=== PATIENT | male | born 1995 | race Caucasian/White ===

== ENCOUNTER 2023-08-20 20:48 | Emergency (ER) | payer MEDICAID ==
[~2023-08-20] VITALS: Ht 170.2 cm; Wt 78.0 kg
[2023-08-20 21:14] VITALS: O2SAT 100
[2023-08-20] MEDS: ONDANSETRON HCL 4MG TABLET PO ONE (22:40)
[2023-08-20 22:56] LABS: BASOPHILS % 0.9 % (0.0-2.0); EOSINOPHILS % 0.3 % (0.0-5.0); HEMATOCRIT. 42.2 % (42.0-52.0); HEMOGLOBIN. 14.3 g/dL (14.0-18.0); LYMPHOCYTES % 16.1 % (20.0-50.0); MEAN CORPUSCULAR HEMOGLOBIN 27.8 pg (28.0-32.0); MEAN CORPUSCULAR VOLUME 81.6 fL (80.0-94.0); MEAN PLATELET VOLUME 8.2 fl (7.4-10.4); MONOCYTES % 6.4 % (2.0-8.0); NEUTROPHILS % 76.3 % (40.0-76.0); PLATELET 306 x1000/uL (130-400); RED BLOOD CELL COUNT 5.17 mill/uL (4.7-6.1); RED CELL DISTRIBUTION WIDTH 13.6 % (11.6-14.6); WHITE BLOOD COUNT 6.8 x1000/uL (4.5-11.0)
[2023-08-20 23:02] LABS: CHLORIDE 102 mEq/L (98-107); POTASSIUM 4.3 mEq/L (3.5-5.1); SODIUM 135 mEq/L (136-145)
[2023-08-20 23:03] LABS: CALCIUM 8.8 mg/dL (8.7-10.4); CARBON DIOXIDE 25 mEq/L (21-32)
[2023-08-20 23:08] LABS: CREATININE 0.8 mg/dL (0.6-1.3); GLUCOSE 97 mg/dL (70-105); UREA NITROGEN BLOOD 7 mg/dL (9-23)
[2023-08-20 23:10] LABS: ALANINE AMINOTRANSFERASE 42 IU/L (10-49); ALBUMIN 4.9 g/dL (3.2-4.8); ASPARTATE AMINOTRANSFERASE 31 IU/L (<34); BILIRUBIN TOTAL 0.6 mg/dL (0.1-1.0); CREATINE KINASE 199 IU/L (46-171); PROTEIN TOTAL 7.9 g/dL (6.0-8.3)
[2023-08-20 23:55] VITALS: BP 114/71; PULSE 71; RESP 16; TEMP 98.7
== END 2023-08-21 00:05 | disposition home or self-care (01) ==
LOC: ER 20:48
DX: R20.2 Paresthesia of skin (principal); E78.00 Pure hypercholesterolemia, unspecified
CPT/HCPCS: 99283; 80053; 82550; 85025; 36415; Q0162

== ENCOUNTER 2024-05-29 07:22 | Emergency (ER) | payer MEDICAID ==
[~2024-05-29] VITALS: Ht 167.6 cm; Wt 81.6 kg
[2024-05-29 07:32] VITALS: O2SAT 100
[2024-05-29] MEDS: KETOROLAC 30MG/ML VIAL IM ONE (09:00)
[2024-05-29] MEDS ORDERED: CLIN-116 MT (09:06)
[2024-05-29 09:32] VITALS: BP 135/81; PULSE 70; RESP 18; TEMP 37.2; O2SAT 100
== END 2024-05-29 09:34 | disposition home or self-care (01) ==
LOC: ER 07:22
DX: K08.89 Other specified disorders of teeth and supporting structures (principal); Z88.1 Allergy status to other antibiotic agents
CPT/HCPCS: 99283; 96372; J1885